=== PATIENT | female | born 1985 | race Caucasian/White ===

== ENCOUNTER 2021-10-17 16:33 | Observation (INO) ==
[2021-10-17 17:20] LABS: ABS Basophils 0.1 10^3/ul (0-0.2); ABS Eosinophils 0.1 10^3/ul (0-0.6); ABS Lymphocytes 1.4 10^3/ul (1.0-4.8); ABS Monocytes 0.5 10^3/ul (0-0.8); ABS Neutrophils 3.5 10^3/ul (1.5-7.7); Eosinophil % 1.3 %; Hematocrit 45 % (35-47); Lymphocyte % 24.8 %; Mean Corpuscular HGB Conc 34 g/dL (31-36); Mean Corpuscular Hemoglobin 30 pg (27-31); Mean Corpuscular Volume 89 fL (80-97); Nucleated Red Blood Cells % 0.1; Platelet Count 219 10^3/uL (150-450); Red Blood Count 4.99 10^6 /uL (3.70-4.87); Red Cell Distribution Width 14 % (10-15); White Blood Count 5.5 10^3/uL (3.5-10.8)
[2021-10-17 17:25] LABS: INR 1.09 (0.86-1.15)
[2021-10-17 18:07] LABS: Albumin 3.9 g/dL (3.2-5.2); Albumin/Globulin Ratio 1.4 (1-3); Calcium 9.1 mg/dL (8.6-10.3); Globulin 2.7 g/dL (2-4); Potassium 4.2 mmol/L (3.5-5.0); Total Bilirubin 0.6 mg/dL (0.2-1.0); Total Protein 6.6 g/dL (6.4-8.9); eGFR CKD-EPI 102.8 (>60)
[2021-10-17 18:50] LABS: High Sensitivity Troponin 1 Hr 3 pg/mL (<15)
[2021-10-18] MEDS ORDERED: Iohexol 350 (CONTRAST) 500 ML MDV IV ONE (00:13)
[2021-10-18] MEDS ORDERED: Propranolol 80 mg TAB PO SCH (04:00)
[2021-10-18 16:43] LABS: Folate 12.21 ng/mL (5.90-24.80)
[2021-10-18] MEDS ORDERED: Magnesium Hydroxide LIQ 30 ML UDC PO PRN (21:09)
[2021-10-18] MEDS: Lidocaine PATCH 5% PATCH TRANSDERM SCH (21:46)
[2021-10-18] MEDS: Senna TAB 8.6 mg TAB PO PRN ×2 (21:50→22:12)
[2021-10-19 06:59] LABS: Hematocrit 44 % (35-47); Hemoglobin 15.1 g/dL (12.0-16.0); Mean Corpuscular HGB Conc 35 g/dL (31-36); Mean Corpuscular Hemoglobin 31 pg (27-31); Mean Corpuscular Volume 90 fL (80-97); Mean Platelet Volume 8.5 fL (7.4-10.4); Platelet Count 218 10^3/uL (150-450); Red Blood Count 4.86 10^6 /uL (3.70-4.87); Red Cell Distribution Width 13 % (10-15); White Blood Count 6.3 10^3/uL (3.5-10.8)
[2021-10-19 07:08] LABS: Calcium 9.6 mg/dL (8.6-10.3); Potassium 3.9 mmol/L (3.5-5.0); eGFR CKD-EPI 96.7 (>60)
[2021-10-19] MEDS: Amphetamine/Dextroam ER 10(NF) 10 mg CAP.ER PO SCH (09:58)
[2021-10-19] MEDS: Lidocaine PATCH 5% PATCH TRANSDERM SCH (12:01)
[2021-10-19 14:11] LABS: Body Fluid Source Cerebral Spinal
[2021-10-19 14:27] LABS: CSF Glucose 70 mg/dL (40-70)
[2021-10-19 14:48] LABS: Body Fluid Appearance Clear; Body Fluid Color Colorless; CSF Tube # 4
[2021-10-19 14:56] LABS: Body Fluid WBC 1.1 /mcL
[2021-10-19 15:30] LABS: Body Fluid Total Cells Counted 3
[2021-10-19] MEDS: Cholecalciferol (VIT D3) 1,000 unit TAB PO SCH (15:31)
[2021-10-19] MEDS ORDERED: Gadoteridol (CONTRAST) 279.3 MG/ML 10 ML IV ONE (19:24)
[2021-10-20] MEDS ORDERED: Testosterone Cypionate (NF) 200 MG/ML VIAL IM ONE (09:37)
[2021-10-20] MEDS: Amphetamine/Dextroam ER 10(NF) 10 mg CAP.ER PO SCH (10:25)
[2021-10-20] MEDS: Cholecalciferol (VIT D3) 1,000 unit TAB PO SCH (10:25)
[2021-10-20] MEDS: Lidocaine PATCH 5% PATCH TRANSDERM SCH (10:26)
[2021-10-20 14:13] VITALS: BP 119/77
[2021-10-22 01:06] LABS: NMO/AQP4 IgG Negative (Negative)
[2021-10-23 16:08] LABS: CSF Oligoclonal Bands 2 bands; Oligoclonal Proteins Interpret 0 bands (<2); Serum Oligoclonal Bands 2 bands
== END 2021-10-20 15:30 | disposition home or self-care (01) ==
LOC: ED 16:33 → SUATTDRO 10-18 04:00 → INTOOBSV 10-18 04:00 → EDHOLD 10-18 04:00 → MED 10-18 09:47
PROVIDERS: ADMIT Internal Medicine; ATTEND Internal Medicine

== ENCOUNTER 2022-05-18 17:36 | Observation (INO) ==
[2022-05-18 18:13] LABS: ABS Eosinophils 0.1 10^3/ul (0-0.6); ABS Lymphocytes 1.6 10^3/ul (1.0-4.8); ABS Monocytes 0.6 10^3/ul (0-0.8); ABS Neutrophils 4.2 10^3/ul (1.5-7.7); Eosinophil % 1.5 %; Hematocrit 50 % (35-47); Hemoglobin 16.5 g/dL (12.0-16.0); Lymphocyte % 24.9 %; Mean Corpuscular HGB Conc 33 g/dL (31-36); Mean Corpuscular Hemoglobin 28 pg (27-31); Mean Corpuscular Volume 84 fL (80-97); Mean Platelet Volume 8.2 fL (7.4-10.4); Nucleated Red Blood Cells % 0.1; Platelet Count 217 10^3/uL (150-450); Red Blood Count 5.91 10^6 /uL (3.70-4.87); Red Cell Distribution Width 15 % (10-15); White Blood Count 6.6 10^3/uL (3.5-10.8)
[2022-05-18 19:10] LABS: Albumin 4.1 g/dL (3.2-5.2); Albumin/Globulin Ratio 1.5 (1-3); C Reactive Protein 7.3 mg/L (<8.01); Calcium 9.3 mg/dL (8.6-10.3); Globulin 2.7 g/dL (2-4); Potassium 4.4 mmol/L (3.5-5.0); Total Bilirubin 0.4 mg/dL (0.2-1.0); Total Protein 6.8 g/dL (6.4-8.9); eGFR CKD-EPI 84.5 (>60)
[2022-05-18 20:23] LABS: Erythrocyte Sed Rate 10 mm/Hr (0-19)
[2022-05-18 20:24] LABS: TSH Ultra Thyroid Stim Horm 1.59 mcIU/mL (0.34-5.60)
[2022-05-18] MEDS ORDERED: NS 0.9% 1000 ml BAG 1,000 ML IV SCH (21:15)
[2022-05-18] MEDS: Propranolol 80 mg TAB PO SCH (21:49)
[2022-05-19 02:41] LABS: Urine Bacteria Absent (Absent); Urine Red Blood Cell Trace(0-2/hpf) (Absent); Urine Squamous Epithelial Cell Present (Absent); Urine White Blood Cell 3+(>20/hpf) (Absent)
[2022-05-19 02:47] LABS: Urine Appearance Cloudy; Urine Bilirubin Negative (Negative); Urine Blood Negative (Negative); Urine Color Yellow; Urine Glucose Negative (Negative); Urine Ketones Negative (Negative); Urine Nitrite Positive (Negative); Urine Protein Negative (Negative); Urine Urobilinogen Negative (Negative)
[2022-05-19 05:48] LABS: ABS Eosinophils 0.1 10^3/ul (0-0.6); ABS Lymphocytes 1.9 10^3/ul (1.0-4.8); ABS Monocytes 0.6 10^3/ul (0-0.8); ABS Neutrophils 4.2 10^3/ul (1.5-7.7); Eosinophil % 1.8 %; Hematocrit 45 % (35-47); Hemoglobin 15.1 g/dL (12.0-16.0); Lymphocyte % 27.7 %; Mean Corpuscular HGB Conc 33 g/dL (31-36); Mean Corpuscular Hemoglobin 28 pg (27-31); Mean Corpuscular Volume 84 fL (80-97); Nucleated Red Blood Cells % 0.1; Platelet Count 184 10^3/uL (150-450); Red Blood Count 5.38 10^6 /uL (3.70-4.87); Red Cell Distribution Width 15 % (10-15); White Blood Count 6.8 10^3/uL (3.5-10.8)
[2022-05-19 06:51] LABS: Calcium 8.2 mg/dL (8.6-10.3); Potassium 3.9 mmol/L (3.5-5.0); eGFR CKD-EPI 100.6 (>60)
[2022-05-19] MEDS: Amphetamine/Dextroam ER 10(NF) 10 mg CAP.ER PO SCH (10:26)
[2022-05-19] MEDS ORDERED: cefTRIAXone 1 gm/50 mL D5W 1 GM/50 ML BAG IV SCH (16:00)
[2022-05-19] MEDS ORDERED: CALCIUM GLUCONATE 1GM/50ML NS 1 GM/50 ML BAG IV ONE (16:34)
[2022-05-19] MEDS: Propranolol 80 mg TAB PO SCH (20:37)
[2022-05-20 06:57] LABS: ABS Basophils 0.1 10^3/ul (0-0.2); ABS Eosinophils 0.2 10^3/ul (0-0.6); ABS Lymphocytes 2.3 10^3/ul (1.0-4.8); ABS Monocytes 0.8 10^3/ul (0-0.8); ABS Neutrophils 4.1 10^3/ul (1.5-7.7); Eosinophil % 2.2 %; Hematocrit 47 % (35-47); Hemoglobin 15.8 g/dL (12.0-16.0); Lymphocyte % 31.2 %; Mean Corpuscular HGB Conc 34 g/dL (31-36); Mean Corpuscular Hemoglobin 28 pg (27-31); Mean Corpuscular Volume 84 fL (80-97); Mean Platelet Volume 8.2 fL (7.4-10.4); Platelet Count 209 10^3/uL (150-450); Red Blood Count 5.62 10^6 /uL (3.70-4.87); Red Cell Distribution Width 15 % (10-15); White Blood Count 7.4 10^3/uL (3.5-10.8)
[2022-05-20 07:30] LABS: Albumin 3.7 g/dL (3.2-5.2); Albumin/Globulin Ratio 1.4 (1-3); Calcium 9.2 mg/dL (8.6-10.3); Globulin 2.6 g/dL (2-4); Potassium 4.2 mmol/L (3.5-5.0); Total Bilirubin 0.6 mg/dL (0.2-1.0); Total Protein 6.3 g/dL (6.4-8.9); eGFR CKD-EPI 88.1 (>60)
[2022-05-20] MEDS: Amphetamine/Dextroam ER 10(NF) 10 mg CAP.ER PO SCH (08:53)
[2022-05-20 12:53] VITALS: BP 119/79
== END 2022-05-20 14:10 | disposition home or self-care (01) ==
LOC: EDHOLD 17:36 → ED 17:36 → SUATTDRO 21:04 → EDHOLD 05-19 10:33 → MED 05-19 10:55
PROVIDERS: ADMIT Student in an Organized Health Care Education/Training Program; ATTEND Internal Medicine